=== PATIENT | female | born 2000 | race African-American/Black ===

== ENCOUNTER 2024-08-22 17:46 | Emergency (ER) | payer BC, SELFPAY ==
--- OUTSIDE RECORDS SUMMARY | 2024-08-22 17:54 | XMS_ITS | Referral Summary ---
Author Organization [facility] 1 [employer] Address [address] [place] [address] Phone Care Team Providers Care Electric Deicer Inspector Name Role Phone Enrike Garcia MD Primary Care Provider [phone] Allergies No known active allergies Medications albuterol (PROVENTIL,FRANCHESCA CAMILO) 2.5 mg /3 mL (0.083 %) nebulizer solution Give 1 vial per nebulizer every 3-6 hours as needed. 120 vial 7 Active norgestimate-eth inyl estradioL (ORTHO-CYCLEN) 0.25-35 mg-mcg per tablet Sprintec 28 0.25-35 MG-MCG Oral Tablet QTY: 30 tablet Days: 30 Refills: 8 Written: 11/21/19 Patient Instructions: One tablet daily 0 Active omeprazole (PriLOSEC) 20 mg capsule Take 20 mg by mouth Active fluticasone propionate (FLOVENT HFA) 110 mcg/actuation inhalerIndicatio ns:Maintenance Therapy for Asthma Inhale 2 puffs 2 (two) times a day Rinse mouth with water after use. Do not swallow. 1 Inhaler 11 1 Active Additional Information Patient not taking.Reported on 09/19/2020 albuterol HFA (ProAir HFA) 90 mcg/actuation inhalerIndicatio ns:Mild intermittent asthma without complication Inhale 2 puffs every 4 (four) hours as needed for wheezing or shortness of breath 8.5 g 3 1 Active Active Problems Problem Noted Date Diagnosed Date Encounter for screening for lipid disorder 08/27 Assessment & Plan (08/27/2020 2:45 PM CDT): Lipid panel ordered; will call w/results when received. Reviewed diet/exercise recommendations. Class 1 obesity due to exces s calories without serious comorbidity with body mass index (BMI) of 33.0 to 33.9 in adult 08/27/2020 Assessment & Plan (08/27/2020 2:42 PM CDT): Reviewed need to lose weight, reviewed health benefits. Reviewed recommendations for daily intake & activity 20-30 minutes/day. Discussed healthy diet and importance of regular physical activity. Had gastric sleeve 11/2018. 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 Not getting her 60g protein daily. Does drink soda at times, does drink out of a straw. Reviewed gastric surgery restrictions again. Reviewed diet: foods to avoid, foods to include. Reviewed vitamins. Not taking iron tablets any longer. Tobacco dependence due to cigarettes 08/27/2020 Assessment & Plan (08/27/2020 2:38 PM CDT): Strongly encouraged complete cessation. Smokes 3-4 cigarettes/day. Precontemplative. Encouraged complete smoking cessation. Discussed different types of medications & zywz-vas-kxftzwq aides to help with cessation. GERD (gastroesophageal reflux disease) Assessment & Plan (08/27/2020 2:44 PM CDT): omeprzole 20mg daily. Reviewed provocative foods to avoid: caffeine, citrus, ETOH, carbonated drinks, fried/fatty/fast foods & rich/creamy sauces. Reviewed diet/exercise recommendations: 20-30min physicaly activity daily at minimum. Reviewed med Ses & scheduling. Weight loss will help improve GERD sxs. Keep HOB elevated 30 degrees & not eat 2-3 hrs before bedtime. Mild intermittent asthma without complication Assessment & Plan (08/27/2020 2:39 PM CDT): Poor control of asthma w/rescue inhaler. flovent 110mcg 2 puffs bid added. Aware to rinse mouth after use. To call if no improvement in asthma status. Immunizations Immunization Administration Dates Next Due DTaP 12/11/2003,06/09/2001,06/18/2000 DTaP / HiB / IPV 05/07/2000,02/04/2000 Hep B, Adolescent or Pediatric 06/18/2000,1999,1999 Hib (PRP-OMP) 06/09/2001,06/18/2000 IPV 12/11/2003,11/24/2000 Influenza, Unspecified 04/20/2020(Deferr ed: Patient Refused),04/20/2019(Deferred: Patient Refused),02/05/2018(Deferred: Patient Refused),04/27/2017(Deferred: Patient Refused) MMR 12/11/2003,11/24/2000 Meningococcal MCV4P (Menactra) 01/23/2017,2010 Pneumococcal Conjugate PCV 13 06/09/2001, 001,06/18/2000,05/07/2000 Tdap 11/21/2010 Social History Tobacco Use Types Packs/Day Years Used Date Smoking Tobacco: Every Day Cigarettes 0.2 2 Smokeless Tobacco: Never Tobacco Cessation:Ready to Q uit: No; Counseling Given: Yes Comments:vape Alcohol Use Standard Drinks/Week Comments Yes 0 (1 standard drink = 0.6 oz pur e alcohol) PHQ-2 Answer Date Recorded PHQ-2 Total Score (If total score is 3 or more points, staff should administer the PHQ-9) 0 08/27/2020 Comments No Sex and Gender Information Value Date Recorded Sex Assigned at Not on file 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 Gender Identity Not on file Sexual Orientation Not on file Last Filed Vital Signs Vital Sign Reading Time Taken Comments Blood Pressure 116/67 09/21/2020 12:48 PM CDT Pulse 81 09/21/2020 12:48 PM CDT Temperature 36.4 C (97.5 F) 09/21/2020 8:50 AM CDT Respiratory Rate 16 09/21/2020 12:48 PM CDT Oxygen Saturation 98% 09/21/2020 12:48 PM CDT Inhaled Oxygen Concentration - - Weight 104.3 kg (230 lb) 09/21/2020 8:50 AM CDT Height 170.2 cm (5' 7 ) 09/21/2020 8:50 AM CDT Body Mass Index 36.02 09/21/2020 8:50 AM CDT Plan of Treatment Not on file Insurance [employer] [place] [employer] [place] [employer] [place] Care Teams Electric Deicer Inspector Relationship Specialty Start Date End Date Enrike Garcia MD [address] [place] [address] PCP - General Family Medicine 02/05/18
--- OUTSIDE RECORDS SUMMARY | 2024-08-22 17:54 | XMS_ITS | Clinical Summary ---
Author Organization [facility] Address [address] [place] [address] Phone Care Team Providers Care Chief Of Police Name Role Phone Enrike Garcia MD Primary Care Provider [phone] Allergies No known active allergies Medications oxybutynin (DITROPAN) 5 MG Tablet Take 1 Tab by mouth daily. 03/10/2018 Active Social History Tobacco Use Types Packs/Day Years Used Date Smoking Tobacco: Never Smokeless Tobacco: Never Comments No Sex and Gender Information Value Date Recorded Sex Assigned at Not on file Legal Sex Female 12:30 AM CDT Gender Identity Not on file Sexual Orientation Not on file Last Filed Vital Signs Vital Sign Reading Time Taken Comments Blood Pressure 115/79 04/18/2018 9:04 PM HYDRAULIC PLUMBER Pulse 56 04/18/2018 9:04 PM HYDRAULIC PLUMBER Temperature 36.4 C (97.6 F) 04/18/2018 7:43 PM HYDRAULIC PLUMBER Respiratory Rate 13 04/18/2018 9:04 PM HYDRAULIC PLUMBER Oxygen Saturation 99% 04/18/2018 9:04 PM HYDRAULIC PLUMBER Inhaled Oxygen Concentration - - Weight 145.2 kg (320 lb) 04/18/2018 7:43 PM HYDRAULIC PLUMBER Height 172.7 cm (5' 8 ) 04/18/2018 7:43 PM HYDRAULIC PLUMBER Body Mass Index 48.66 04/18/2018 7:43 PM HYDRAULIC PLUMBER Plan of Treatment Health Maintenance Due Date Last Done Comments Hepatitis C Virus (HCV) Screening 1999 TdaP Immunization 1999 Human Papillomavirus (HPV) Immunization (1 - 3-dose series) 11/19/2014 Influenza Immunization (#1) 2023 03/10/2002 SARS-COV-2 Immunization (2023-25 season) 2023 Respiratory Syncytial Virus (RSV) Immunization (Adult) (1 - 1-dose 75+ series) 11/19/2074 Hepatitis B Immunization Completed 001, 02/04/2000, 1999 Pneumococcal Immunization Combined Aged Out 06/09/2001, 11/24/2000, 06/18/2000, Additional history exists No longer eligible based on patient's age to complete this topic DTaP/Tdap/Td Immunization Discontinued 2003, 06/09/2001, 06/18/2000, Additional history exists Meningococcal Immunization (ACWY) Aged Out No longer eligible based on patient's age to complete this topic Rotavirus Immunization Aged Out No lo nger eligible based on patient's age to complete this topic Insurance [facility] Care Teams Chief Of Police Relationship Specialty Start Date End Date Enrike Garcia MD [address] [place] [address] PCP - General Internal Medicine 04/01/18
--- OUTSIDE RECORDS SUMMARY | 2024-08-22 17:54 | XMS_ITS | Clinical Summary ---
Author Organization [facility] 1 [employer] Address [address] [place] [address] Phone Care Team Providers Care Shirt Hemmer Name Role Phone Enrike Garcia MD Primary Care Provider [phone] Allergies No known active allergies Medications albuterol [...] cessation. Discussed different types of medications & dctt-kzd-ggylqkq aides to help with cessation. GERD (gastroesophageal [...] Conjugate PCV 13 06/09/2001, 001,06/18/2000,05/07/2000 Tdap 11/21/2010 Surgical History Surgery Date Site/Laterality Comments OTHER SURGICAL HISTORY 04/20/2001 - 04/19/2002 tubes in ears GASTRIC BYPASS 11/18/2018 - 12/18/2018 gastric sleeve Medical History Medical History Date Comments Asthma Asthma Chicken pox Family History Medical History Relation Name Comments No Known Problems Brother 1 Christopher No Known Problems Brother 2 David No Known Problems Father Lele Diabetes Mother Antonia Arthritis Other 1 Family history of arthritis; Cancer Other 2 Family history of cancer; Diabetes Other 3 Family history of diabetes; Relation Name Status Comments Brother 1 Christopher Alive Brother 2 David Alive Father Lele Alive Mother Antonia Alive Other 1 Other 2 Other 3 Social History Tobacco Use Types Packs/Day Years [...] on file 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
[2024-08-22 17:56] VITALS: BP 135/76; PULSE 85; RESP 20; TEMP 36.4; O2SAT 97
--- NOTE | 2024-08-22 18:02 | ED_ITS ---
HPI - Back Pain/Injury General Chief Complaint: Back Pain/Injury Stated Complaint: Back Pain Time Seen by Provider: 08/22/24 18:12 Source: patient Mode of arrival: ambulatory Limitations: no limitations History of Present Illness HPI Narrative: 23-year-old female presented for complaint of left hamstring and low back pain. Patient states she started a new exercise routine 3 days ago where she worked on a treadmill at incline for 1 hour. She developed a hamstring pain following the activity and then returned the next day to walk an hour again. Subsequently developed a low back pain. Denies pain radiating into the hips or legs, numbness, tingling, weakness of the lower extremities, or change in gait, saddle paresthesia or loss of bowel or bladder. Related Data Home Medications ?Medication ?Instructions ?Recorded ?Confirmed ?Last Taken ?Type norgestimate 0.25 mg-ethinyl tablet 08/22/24 Unknown History estradiol 0.035 mg tablet (Maribeth) Allergies Allergy/AdvReac Type Severity Reaction Status Date / Time No Known Allergies Allergy Verified 08/22/24 18:02 Review of Systems Review of Systems: CONSTITUTIONAL: Denies body aches, fever, chills EYES: Denies visual changes CARDIOVASCULAR: Denies chest pain, palpitations, or edema. RESPIRATORY: Denies cough or dyspnea. GASTROINTESTINAL: Denies abdominal pain, nausea, vomiting, or diarrhea. SKIN: Denies rash, itching, or wounds. MUSCULOSKELETAL: reports back pain NEUROLOGIC: Denies headache, numbness, tingling, or weakness. All systems reviewed & are unremarkable except as noted in HPI and below [facility] Surgical History Surgical History (Updated 08/22/24 @ 18:31 by Umu Santana, ETHAN) H/O gastric sleeve Comments At time of signature, I have reviewed and agree with nursing past medical, surgical, social and family history unless otherwise noted. Please see nursing chart for further information. There is no relevant family history pertinent to the presenting complaint Exam Narrative: GENERAL: Well-appearing NECK: Supple. full ROM CHEST: Speaks in full sentences. No respiratory distress. HEART: Regular rate and rhythm. Normal and equal peripheral pulses. MUSC: Mild bilateral lumbar paraspinal tenderness with palpation. No Vertebral point tenderness. BLEs with normal strength and sensation, normal range of motion. No bruising, No open wounds. pulse palpable and equal bilaterally, skin warm, dry, pink. Capillary refill less than 3 seconds. Gait steady. SKIN: Warm, dry, no rash. NEURO: Alert and oriented x3. Course Course Emergency Course: Patient is aware of diagnosis, understands and agrees to treatment plan. Anticipatory guidance given. Patient agrees to follow-up as directed and is aware of reasons to seek care at the emergency department. Portions of this record may have been created with voice recognition software Level of Care: Express Care Visit Vital Signs Vital signs: Vital Signs Temperature 97.6 F 08/22/24 17:56 Pulse Rate 85 08/22/24 17:56 Respiratory Rate 20 08/22/24 17:56 Blood Pressure 135/76 08/22/24 17:56 Pulse Oximetry 97 08/22/24 17:56 Oxygen Delivery Room Air 08/22/24 17:56 Temperature 97.6 F 08/22/24 17:56 Pulse Rate 85 08/22/24 17:56 Respiratory Rate 20 08/22/24 17:56 Blood Pressure 135/76 08/22/24 17:56 Pulse Oximetry 97 08/22/24 17:56 Oxygen Delivery Room Air 08/22/24 17:56 Reviewed MDM - Back Pain/Injury MDM Narrative Medical decision making narrative: discussed physical exam findings consistent with muscle strain. Reviewed Rx. Will send prednisone. Advised supportive measures and s/s to go to the ER. Pt is stable and appropriate for outpt treatment and follow up with pcp. Differential Diagnosis Differential diagnosis: Likely lumbar radiculopathy, sciatica, strain of lumbar region, renal colic, pyelonephritis and discitis Discharge Plan Discharge Clinical Impression: Strain of lumbar region Patient Disposition: Home Condition: Stable Instructions: Antibiotic Form, Low Back Strain (ED) Additional Instructions: Please follow up with your Primary Care Doctor within 72 hours - call for an appointment. Avoid lifting. pushing. pulling, or anything that worsens the pain. Walking and other gentle exercising several times a week has been shown to improve back pain; bed rest is not recommended. Tylenol 1000mg every 8 hours Take muscle relaxers every 8 hours as needed for muscle spasm- do not drive or make any important decisions while on this medication for it can make you drowsy. Over the counter pain cream like icy/hot or biofreeze, or Salon pas/lidocaine 4% patch. You may apply heat or cold to the area as needed. Go to the ER If you experience any worsening pain, swelling, numbness, weakness, problems with bladder or bowel function, weakness or loss of feeling in one or both of your legs, or any other serious concerns. Patient Language: Croatian Prescriptions: New cyclobenzaprine 10 mg tablet 10 mg PO TID PRN (Reason: muscle spasm) Qty: 10 0RF prednisone 50 mg tablet 50 mg PO DAILY Qty: 3 0RF No Action norgestimate-ethinyl estradiol [Maribeth] 0.25-0.035 mg tablet Follow-up/Referrals: PHYSICIAN,COMPRESSOR OPERATOR ADJUSTER [Primary Care Provider] - Time of Disposition: 18:30
== END 2024-08-22 18:31 | disposition home or self-care (01) ==
PROVIDERS: Emergency Provider Nurse Practitioner Family
DX: S39.012A Strain of muscle, fascia and tendon of lower back, initial encounter (principal); Y93.A1 Activity, exercise machines primarily for cardiorespiratory conditioning
CPT/HCPCS: 99213; G0463